=== PATIENT | male | born 1965 | race Caucasian/White ===

== ENCOUNTER 2017-11-26 13:52 | Observation (INO) ==
[2017-11-26] MEDS ORDERED: Aspirin 325 MG TABLET PO STA (14:36)
--- NOTE | 2017-11-26 14:53 | Emergency Department Note ---
Disposition Clinical Impression: Chest pain Qualifiers: Chest pain type: unspecified Qualified Code(s): R07.9 - Chest pain, unspecified CHF (congestive heart failure) Qualifiers: Heart failure type: unspecified Heart failure chronicity: unspecified Qualified Code(s): I50.9 - Heart failure, unspecified Disposition: Admitted As Inpatient Condition: Good Forms: ED Satisfaction Letter General Adult HPI - General Chief complaint: ED Chest Pain Stated complaint: SEE,Chest tightness Time Seen by Provider: 11/26/17 14:29 Source: patient Mode of arrival: ambulatory Limitations: no limitations Nursing Notes Reviewed: Yes Vital Signs Reviewed: Yes - History of Present Illness HPI Narrative: Patient presents today for evaluation of dyspnea and chest pain. Patient has a significantly elevated BMI of 64. Patient has a previous history of CHF. Patient takes 40 mg of Lasix daily. Patient states that he has had increasing shortness of breath with exertion. Patient states symptoms started proximally 5 days ago. Today the patient has chest pain described as pressure in the center of his chest. Patient is currently having active symptoms. Pain does not radiate. Patient states that it is worse with exertion. No associated nausea. No diaphoresis. Patient has not had a productive cough. He has had orthopnea. Pain Scale: 6 - Related Data Home Medications Medication Instructions Recorded Confirmed Aspirin Enteric Coated [Aspirin EC] 81 mg PO DAILY 11/26/17 11/26/17 BuPROPion XL (24 HR) [Wellbutrin 150 mg PO DAILY 11/26/17 11/26/17 XL] Carvedilol 12.5 mg PO BID 11/26/17 11/26/17 DULoxetine [Cymbalta] 30 mg PO DAILY 11/26/17 11/26/17 Ergocalciferol (VITAMIN D2) 50,000 unit PO QWEEK 11/26/17 11/26/17 [Vitamin D2] Furosemide [Lasix] 40 mg PO DAILY 11/26/17 11/26/17 Lisinopril [Zestril] 40 mg PO DAILY 11/26/17 11/26/17 Metformin HCl [Metformin HCl ER] 500 mg PO DAILY 11/26/17 11/26/17 Nitroglycerin [Nitrostat] 0.4 mg SL Q5MIN PRN 11/26/17 11/26/17 Nortriptyline [Pamelor] 25 mg PO HS 11/26/17 11/26/17 Omeprazole [PriLOSEC] 40 mg PO DAILY 11/26/17 11/26/17 Pregabalin [Lyrica] 150 mg PO BID 11/26/17 11/26/17 Sulfasalazine [Azulfidine] 500 mg PO BID 11/26/17 11/26/17 Tamsulosin HCl [Flomax] 0.4 mg PO DAILY 11/26/17 11/26/17 Tizanidine HCl [Tizanidine HCl] 4 mg PO BID 11/26/17 11/26/17 amLODIPine [Norvasc] 5 mg PO DAILY 11/26/17 11/26/17 Allergies Allergy/AdvReac Type Severity Reaction Status Date / Time Penicillins [PCN] Allergy Anaphylaxis Verified 11/26/17 17:15 Review of Systems: CONSTITUTIONAL: Weakness and fatigue No weight loss, fever, chills HEENT: Eyes: No visual changes. Ears, Nose, Throat: No hearing loss, difficulty talking or unable to swallow. SKIN: No rash or itching. CARDIOVASCULAR: Chest pain described as pressure RESPIRATORY: Shortness of breath, orthopnea GASTROINTESTINAL: No anorexia, nausea, vomiting or diarrhea. No abdominal pain or blood. GENITOURINARY: No burning on urination or hematuria. NEUROLOGICAL: Dizziness upon getting up and trying to walk. No headache, syncope, paralysis, ataxia, numbness or tingling in the extremities. No change in bowel or bladder control. MUSCULOSKELETAL: No muscle pain, back pain, joint pain or stiffness. Past Medical History - Past Medical History Medical history: Reports: CHF Psychiatric history: Reports: no psych history - Social History Smoking Status: Unknown if ever smoked Alcohol use: Reports: unknown Drug use: Reports: none Physical Exam General: Well appearing, nontoxic, no acute distress Head: Normocephalic Atraumatic Eyes: PERRL, EOMI ENT: Airway patent, no stridor Neck: supple, no meningismus Chest: Rales at the bases bilaterally Cardiac: Regular rhythm Abdomen: soft, nontender, nondistended; no guarding, rebound, or tenderness to percussion Musculoskeletal: Diffuse swelling in the lower extremities +1 pitting edema up to the thigh Skin: No rash, normal skin tone Neuro: Awake alert and appropriate. Conversational. - General General appearance: alert Course - Reevaluation(s) Reevaluation #1: pain resolved with nitroglycerin. pt will be admitted for chest pain and pulmonary vascular congestion. - Consultations Consultation #1: hospitalist accepts Vital Signs Temperature 97.9 F 11/26/17 14:03 Pulse Rate 103 11/26/17 14:03 Respiratory Rate 20 11/26/17 14:03 Blood Pressure 215/138 11/26/17 14:03 O2 Sat by Pulse Oximetry 90 11/26/17 14:03 Temperature 97.9 F 11/26/17 14:03 Pulse Rate 86 11/26/17 17:18 Respiratory Rate 16 11/26/17 17:18 Blood Pressure 160/93 11/26/17 17:18 O2 Sat by Pulse Oximetry 95 11/26/17 17:18 Oxygen Delivery Oxygen Delivery Nasal Cannula Medical Decision Making - Medical Records Medical records reviewed: Yes I reviewed the patient's medical records. - Lab Data Lab results reviewed: Yes I reviewed the patient's lab results. Result diagrams: 11/26/17 14:45 11/26/17 14:45 Lab Results 11/26/17 11/26/17 11/26/17 Range/Units 14:45 14:45 14:45 WBC 10.6 (4.3-11.1) K/mcL RBC 4.88 (4.19-5.50) M/mcL Hgb 13.8 (12.9-16.9) g/dL Hct 42.7 (37.5-50.1) % MCV 87.5 (83.0-100.0) fL MCH 28.3 (28.0-33.3) pg MCHC 32.3 (31.6-35.5) g/dL RDW 15.1 H (11.5-14.5) % Plt Count 237 (140-400) K/mcL MPV 10.1 (9.4-12.4) fL Immature Gran % 4.4 H (0-4) % Seg Neutrophils % 55.9 % Lymphocytes % 28.1 % Monocytes % 7.9 % Eosinophils % 2.4 % Basophils % 1.3 % Neutrophils # 5.9 (1.6-8.9) K/mcL Lymphocytes # 3.0 (0.6-4.6) K/mcL Monocytes # 0.8 (0.0-1.3) K/mcL Eosinophils # 0.3 (0.0-0.6) K/mcL Basophils # 0.1 (0.0-0.2) K/mcL Sodium 139 (136-145) mEq/L Potassium 3.8 (3.5-5.1) mEq/L Chloride 100 (98-107) mEq/L Carbon Dioxide 33 H (23-29) mEq/L BUN 13 (6-20) mg/dL Creatinine 0.55 L (0.70-1.30) mg/dL Est GFR ( Amer) > 60 (> 60) Est GFR (Non-Af Amer) > 60 (> 60) BUN/Creatinine Ratio 24 (6-26) Glucose 101 (70-105) mg/dL Calculated Osmolality 288 (280-300) Calcium 9.0 (8.6-10.3) mg/dL Troponin I < 0.03 (< 0.04) ng/mL B-Natriuretic Peptide 29 (Less than 100) pg/mL - Radiology Data Radiology results reviewed: Yes I reviewed the patient's radiology results. - EKG Data EKG #1 EKG attestation: Yes I reviewed and interpreted this EKG. EKG results narrative: Shara EKG shows sinus tachycardia with heart rate of 81. W[place] interval 154. QRS 16. QTC 501. Patient has no significant ST elevations. Patient does have depressions within leads 3 and aVF and V6. No old EKG
[2017-11-26 16:07] LABS: Basophils # 0.1 K/mcL (0.0-0.2); Basophils % 1.3 %; Eosinophils # 0.3 K/mcL (0.0-0.6); Eosinophils % 2.4 %; Hematocrit 42.7 % (37.5-50.1); Hemoglobin 13.8 g/dL (12.9-16.9); Immature Granulocytes % 4.4 % (0-4); Lymphocytes % 28.1 %; Mean Corpuscular HGB Conc 32.3 g/dL (31.6-35.5); Mean Corpuscular Hemoglobin 28.3 pg (28.0-33.3); Mean Corpuscular Volume 87.5 fL (83.0-100.0); Mean Platelet Volume 10.1 fL (9.4-12.4); Monocytes # 0.8 K/mcL (0.0-1.3); Monocytes % 7.9 %; Neutrophils # 5.9 K/mcL (1.6-8.9); Platelet Count 237 K/mcL (140-400); Red Blood Count 4.88 M/mcL (4.19-5.50); Red Cell Distribution Width 15.1 % (11.5-14.5); Segmented Neutrophils % 55.9 %
[2017-11-26] MEDS: Nitroglycerin 0.4 MG TAB.SUBL SL STA ×2 (16:22→17:17)
[2017-11-26 16:32] LABS: BUN/Creatinine Ratio 24 (6-26); Blood Urea Nitrogen 13 mg/dL (6-20); Carbon Dioxide 33 mEq/L (23-29); Chloride 100 mEq/L (98-107); Glucose 101 mg/dL (70-105); Osmolality,Calculated 288 (280-300); Potassium 3.8 mEq/L (3.5-5.1); Sodium 139 mEq/L (136-145); Troponin I < 0.03 ng/mL (< 0.04); eGFR For Non-African Americans > 60 (> 60)
[2017-11-26] MEDS ORDERED: Furosemide 40 MG/4 ML VIAL IVP ONE (17:53)
[2017-11-26] MEDS ORDERED: Naloxone 0.4 MG/ML INJ IVP PRN (19:26)
--- NOTE | 2017-11-26 19:36 | Internal Med History&Physical ---
Date of Encounter: 11/26/17 Time of Encounter: 18:50 Internal Medicine - H&P: HPI Chief complaint: Chest Pain, Shortness of Breath Admitted From: Home Plans for Post Hospital Care: Home History of present illness: Mr. Mckay is a 52 year old male with past medical history significant for hypertension, CHF, diabetes, and obesity who presents for shortness of breath over the past 4-5 days getting progressively worse with 10/10 chest tightness starting this morning. Pain was in center of his chest with no radiation. No nausea, vomiting, diaphoresis, cough, or abdominal pain. Denies any alleviation or exacerbating factors. Has had echocardiogram and stress test around four years ago but no heart catheterization history. States he chronically has bilateral lower extremity edema but states it seems to currently be at his baseline. Had nitroglycerin in ER which he states has almost resolved his symptoms completely as his shortness of breath has improved and his chest pain is currently rated at 1/10. Discussed patient with Dr Yi. Past Med Surg Social Fam HX - Past Medical History Medical history: CHF Psychiatric history: no psych history - Social History Smoking Status: Unknown if ever smoked Alcohol use: unknown Drug use: none Internal Medicine - H&P: Meds Aspirin Enteric Coated [Aspirin EC] 81 mg PO DAILY 11/26/17 [History] BuPROPion XL (24 HR) [Wellbutrin XL] 150 mg PO DAILY 11/26/17 [History] Carvedilol 12.5 mg PO BID 11/26/17 [History] DULoxetine [Cymbalta] 30 mg PO DAILY 11/26/17 [History] Ergocalciferol (VITAMIN D2) [Vitamin D2] 50,000 unit PO QWEEK 11/26/17 [History] Furosemide [Lasix] 40 mg PO DAILY 11/26/17 [History] Lisinopril [Zestril] 40 mg PO DAILY 11/26/17 [History] Metformin HCl [Metformin HCl ER] 500 mg PO DAILY 11/26/17 [History] Nitroglycerin [Nitrostat] 0.4 mg SL Q5MIN PRN 11/26/17 [History] Nortriptyline [Pamelor] 25 mg PO HS 11/26/17 [History] Omeprazole [PriLOSEC] 40 mg PO DAILY 11/26/17 [History] Pregabalin [Lyrica] 150 mg PO BID 11/26/17 [History] Sulfasalazine [Azulfidine] 500 mg PO BID 11/26/17 [History] Tamsulosin HCl [Flomax] 0.4 mg PO DAILY 11/26/17 [History] Tizanidine HCl [Tizanidine HCl] 4 mg PO BID 11/26/17 [History] amLODIPine [Norvasc] 5 mg PO DAILY 11/26/17 [History] 3 Allergy/AdvReac Type Severity Reaction Status Date / Time Penicillins [PCN] Allergy Anaphylaxis Verified 11/26/17 17:15 All Systems PM: A 10-system review of systems was performed and is negative for pertinent findings except as documented above in the HPI. - Constitutional Vitals: Temp Pulse Resp BP Pulse Ox 97.9 F 78 16 188/102 95 11/26/17 14:03 11/26/17 18:43 11/26/17 18:43 11/26/17 18:43 11/26/17 18:43 Exam: General: Alert and oriented. Skin:Normal color, no rash, no lesions. HEENT:Pupils equal, round and reactive. Cardiovascular:Heart sounds distant. No rubs, murmurs or gallops. No JVD. Pulse regular. Lungs:Breath sounds decreased, no wheezes or crackles. Respirations non labored. Abdomen:Round, soft, non-tender, no rigidity. Extremities:No deformity, tenderness, or clubbing. 2+ pitting edema noted to bilateral lower extremities. Neurological:Normal cognition and motor skills. Pulses:Carotid and radial pulses normal +2. Rest of the physical exam is non contributory. Internal Med - H&P Results - Labs CBC & Chem 7: 11/26/17 14:45 11/26/17 14:45 - Assessment and plan (1) Chest pain Current Visit: Yes Status: Acute Assessment and plan: Continuous cardiac rehabilitation specialist. Initial troponin in ER negative, serial troponins ordered. Echocardiogram ordered. Stress test in a.m. Cardiac diet. NPO after midnight. Qualifiers: Chest pain type: unspecified Qualified Code(s): R07.9 - Chest pain, unspecified (2) CHF (congestive heart failure) Current Visit: Yes Status: Chronic Assessment and plan: 20mg Lasix IV BID. Hold oral lasix. Echocardiogram ordered. BNP in a.m. Qualifiers: Heart failure type: unspecified Heart failure chronicity: unspecified Qualified Code(s): I50.9 - Heart failure, unspecified (3) Hypertension Current Visit: Yes Status: Chronic Assessment and plan: Continue home medications. Qualifiers: Hypertension type: unspecified Qualified Code(s): I10 - Essential (primary ) hypertension (4) Diabetes mellitus Current Visit: Yes Status: Chronic Assessment and plan: Accucheck ACHS. Hold home medications. Start low dose sliding scale insulin. Qualifiers: Diabetes mellitus type: type 2 Diabetes mellitus supervisor long goods insulin use: without supervisor long goods use Diabetes mellitus complication status: without complication Qualified Code(s): E11.9 - Type 2 diabetes mellitus without complications - Time Spent With Patient Total time spent is greater than 50% in coordination of care (as documented) at patient's floor/unit and/or counseling patient:
[2017-11-26] MEDS ORDERED: *HR* Dextrose 50 % in Water (Syg) 50 ML SYRINGE IVP PRN (19:47)
[2017-11-26] MEDS ORDERED: Dextrose Gel 15 GM/37.5 ML TUBE PO PRN ×2 (19:47)
[2017-11-26] MEDS ORDERED: Furosemide 40 MG/4 ML VIAL IVP SCH (21:00)
[2017-11-26] MEDS ORDERED: D5% in Water 1,000 ML IVC PRN (22:52)
[2017-11-26] MEDS: Insulin LISPRO 300 UNITS/3 ML VIAL SQ SCH (23:11)
[2017-11-26] MEDS: Pregabalin 75 MG CAPSULE PO SCH (23:13)
[2017-11-26] MEDS: Furosemide 20 MG/2 ML VIAL IVP SCH (23:13)
[2017-11-26] MEDS: tiZANidine 4 MG TABLET PO SCH (23:14)
[2017-11-26] MEDS: sulfaSALAzine 500 MG TABLET PO SCH (23:14)
[2017-11-27 02:20] LABS: Basophils # 0.1 K/mcL (0.0-0.2); Eosinophils # 0.3 K/mcL (0.0-0.6); Eosinophils % 2.8 %; Hemoglobin 13.6 g/dL (12.9-16.9); Immature Granulocytes % 3.6 % (0-4); Lymphocytes # 2.8 K/mcL (0.6-4.6); Lymphocytes % 26.1 %; Mean Corpuscular HGB Conc 31.6 g/dL (31.6-35.5); Mean Corpuscular Hemoglobin 27.9 pg (28.0-33.3); Mean Corpuscular Volume 88.3 fL (83.0-100.0); Mean Platelet Volume 9.6 fL (9.4-12.4); Monocytes # 0.9 K/mcL (0.0-1.3); Monocytes % 8.8 %; Neutrophils # 6.2 K/mcL (1.6-8.9); Platelet Count 211 K/mcL (140-400); Red Blood Count 4.87 M/mcL (4.19-5.50); Red Cell Distribution Width 15.2 % (11.5-14.5); Segmented Neutrophils % 57.7 %
[2017-11-27 02:34] LABS: BUN/Creatinine Ratio 19 (6-26); Blood Urea Nitrogen 14 mg/dL (6-20); Calcium 8.8 mg/dL (8.6-10.3); Carbon Dioxide 34 mEq/L (23-29); Chloride 99 mEq/L (98-107); Glucose 133 mg/dL (70-105); Osmolality,Calculated 290 (280-300); Potassium 3.6 mEq/L (3.5-5.1); Sodium 139 mEq/L (136-145); eGFR For Non-African Americans > 60 (> 60)
[2017-11-27] MEDS ORDERED: Regadenoson 0.4 MG/5 ML SYRINGE IVP ONE (05:51)
[2017-11-27] MEDS: Insulin LISPRO 300 UNITS/3 ML VIAL SQ SCH ×4 (08:30→20:50)
[2017-11-27] MEDS ORDERED: Furosemide 20 MG/2 ML VIAL IVP SCH (09:00)
--- NOTE | 2017-11-27 10:39 | Internal Med Progress Note ---
Hospitalist Progress Note - Encounter Date of Encounter: 11/27/17 Time of Encounter: 10:30 - Subjective Interval History: Had one part of stress test completed this am - Exam Vitals: Temp Pulse Resp BP Pulse Ox 97.9 F 76 17 133/69 97 11/27/17 02:54 11/27/17 02:54 11/27/17 02:54 11/27/17 02:54 11/27/17 02:54 Exam: General: Alert and oriented. Morbidly obese Skin:Normal color, no rash, no lesions. HEENT:Pupils equal, round and reactive. Cardiovascular:Heart sounds distant. No rubs, murmurs or gallops. No JVD. Pulse regular. Lungs:Breath sounds decreased, no wheezes or crackles. Respirations non labored. Abdomen:Round, soft, non-tender, no rigidity. Extremities:No deformity, tenderness, or clubbing. 2+ pitting edema noted to bilateral lower extremities. Neurological:Normal cognition and motor skills. Pulses:Carotid and radial pulses normal +2. Rest of the physical exam is non contributory. - Assessment and Plan (1) Chest pain Current Visit: Yes Status: Acute Assessment and Plan: Pt has chest pain with risk factors for CAd including hypertension, diabetes. Continuous outgoing inspector. Initial troponin in ER negative, serial troponins ordered. Echocardiogram ordered. 11/27 Completed first part of stress today. To complete 2nd part of stress test in am. NPO from midnight (2) CHF (congestive heart failure) Current Visit: Yes Status: Chronic Assessment and Plan: 20mg Lasix IV BID. Echo results pending. No previous echo to determine if CHF is diastolic or systolic or both (3) Hypertension Current Visit: Yes Status: Chronic Assessment and Plan: Continue home medications. (4) Diabetes mellitus Current Visit: Yes Status: Chronic Assessment and Plan: Accucheck ACHS. Hold home medications. Start low dose sliding scale insulin. (5) Morbid obesity Current Visit: Yes Status: Acute Assessment and Plan: BMI 65. Diet and exercise (6) DVT prophylaxis Current Visit: Yes Status: Acute Assessment and Plan: heparin sc - Time Spent with Patient Total time spent is greater than 50% in coordination of care (as documented) at patient's floor/unit and/or counseling patient: Internal Medicine: Result - Labs CBC & Chem 7: 11/27/17 01:56 11/27/17 01:56 Labs: Short CBC 11/27/17 Range/Units 01:56 WBC 10.7 (4.3-11.1) K/mcL Hgb 13.6 (12.9-16.9) g/dL Hct 43.0 (37.5-50.1) % Plt Count 211 (140-400) K/mcL Neutrophils # 6.2 (1.6-8.9) K/mcL BMP 11/27/17 01:56 Sodium 139 Potassium 3.6 Chloride 99 Carbon Dioxide 34 H BUN 14 Creatinine 0.74 Glucose 133 H Calcium 8.8 Cardiac Enzymes 11/26/17 11/27/17 Range/Units 20:19 01:56 Troponin I < 0.03 < 0.03 (< 0.04) ng/mL Consult Discharge Plan - Plan Referrals: Regina Forte MD [Primary Care Provider] - (1) Chest pain Qualifiers: Chest pain type: unspecified Qualified Code(s): R07.9 - Chest pain, unspecified (2) CHF (congestive heart failure) Qualifiers: Heart failure type: unspecified Heart failure chronicity: unspecified Qualified Code(s): I50.9 - Heart failure, unspecified (3) Hypertension Qualifiers: Hypertension type: unspecified Qualified Code(s): I10 - Essential (primary) hypertension (4) Diabetes mellitus Qualifiers: Diabetes mellitus type: type 2 Diabetes mellitus salvage determiner insulin use: without snf use Diabetes mellitus complication status: without complication Qualified Code(s): E11.9 - Type 2 diabetes mellitus without complications
[2017-11-27] MEDS: tiZANidine 4 MG TABLET PO SCH ×2 (10:45→20:51)
[2017-11-27] MEDS: Lisinopril 20 MG TABLET PO SCH (10:46)
[2017-11-27] MEDS: Pregabalin 75 MG CAPSULE PO SCH ×2 (10:46→20:51)
[2017-11-27] MEDS: amLODIPine 5 MG TABLET PO SCH (10:46)
[2017-11-27] MEDS: BuPROPion XL (24 HR) 150 MG TABLET PO SCH (10:46)
[2017-11-27] MEDS: Aspirin Enteric Coated 81 MG Tablet PO SCH (10:46)
[2017-11-27] MEDS: sulfaSALAzine 500 MG TABLET PO SCH ×2 (10:46→20:51)
[2017-11-27] MEDS: Furosemide 20 MG/2 ML VIAL IVP SCH ×2 (10:47→20:51)
[2017-11-27] MEDS: *HR* Heparin 5,000 UNIT/ML VIAL SQ SCH (17:12)
--- NOTE | 2017-11-27 17:48 | Electrocardiograph Report ---
[address] [address] Test Date: 2017-11-26 Pat Name: Silas Mckay Department: [id number] Room: 3B13 Gender: M Quality Coordinator: : 1965 Requested By: [id number] Order Number: [id number] Reading MD: Geoff Trotter Measurements Intervals [place] Rate: 81 P: 63 VT: 154 QRS: 132 QRSD: 106 T: 12 QT: 431 QTc: 501 Interpretive Statements Sinus rhythm Low voltage, precordial leads Prolonged QT interval Electronically Signed On 11-27-2017 17:46:50 EDT by Geoff Trotter
[2017-11-28] MEDS: *HR* Heparin 5,000 UNIT/ML VIAL SQ SCH ×2 (04:53→18:12)
[2017-11-28] MEDS: Insulin LISPRO 300 UNITS/3 ML VIAL SQ SCH ×4 (07:40→21:04)
[2017-11-28] MEDS: sulfaSALAzine 500 MG TABLET PO SCH ×2 (07:50→21:03)
[2017-11-28] MEDS: Aspirin Enteric Coated 81 MG Tablet PO SCH (07:50)
[2017-11-28] MEDS: amLODIPine 5 MG TABLET PO SCH (07:50)
[2017-11-28] MEDS: Pregabalin 75 MG CAPSULE PO SCH ×2 (07:50→21:03)
[2017-11-28] MEDS: Lisinopril 20 MG TABLET PO SCH (07:50)
[2017-11-28] MEDS: BuPROPion XL (24 HR) 150 MG TABLET PO SCH (07:51)
[2017-11-28] MEDS: tiZANidine 4 MG TABLET PO SCH ×2 (07:51→21:03)
[2017-11-28] MEDS: Furosemide 20 MG/2 ML VIAL IVP SCH ×2 (07:51→21:03)
--- NOTE | 2017-11-28 16:03 | Internal Med Progress Note ---
Hospitalist Progress Note - Encounter Date of Encounter: 11/28/17 Time of Encounter: 16:00 - Subjective Interval History: Morbidly obese morbidly obese very pleasant 52-year-old male who was admitted for chest pain. EEG. Has history of diabetes type 2 and he keeps a record of his home blood sugars and now fastings appear to be greater than 200 routinely with improvement test throughout the day he currently takes metformin 2 g daily as well as glyburide 4 mg twice daily and does state that he she routinely eats nightly snack. - Exam Vitals: Temp Pulse Resp BP Pulse Ox 98.0 F 110 15 122/79 96 11/28/17 15:49 11/28/17 15:49 11/28/17 15:49 11/28/17 15:49 11/28/17 15:49 Exam: Stable , denies chist pain, in oxygen @2LPM, non-dyspnic - Assessment and Plan (1) Chest pain Current Visit: Yes Status: Acute Assessment and Plan: Denies chest pain at this time . Completed 2nd part of stress test today with results pending at this time. 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% Troponins are negative 2 at 0.03 Will continue current medications awaiting results of stress test, if needed will consult cardiology (2) CHF (congestive heart failure) Current Visit: Yes Status: Chronic Assessment and Plan: Remains in oxygen @ 2LPM , SPO2 94% will continue with oxygen and monitor with daily weights and strick I&O (3) Hypertension Current Visit: Yes Status: Chronic Assessment and Plan: Stable, will continue with current medications (4) Diabetes mellitus Current Visit: Yes Status: Chronic Assessment and Plan: Review of home glucose per patients report, Moderate controll of glucose, with fasting >200 mg. and Randoms in eving improving to 130's average. Reports eating a late night snack every evening. Morbidly obese with BMI 198.1 kg. Discussed late night eating, and to have a healthy snack such as 2 cups of plain pop corn. Encouraged to consider weight loss. Encouraged to continue to monitor home blood sugars Will obtain HGB A!C and CMP Consult diabetic education, and spooling machine operator re; diabetes and morbid obesity Add levemir 10 units qhs continue with ss TID/hs wm (5) DVT prophylaxis Current Visit: Yes Status: Acute Assessment and Plan: Continue per protocol (6) Morbid obesity Current Visit: Yes Status: Acute - Time Spent with Patient Total time spent is greater than 50% in coordination of care (as documented) at patient's floor/unit and/or counseling patient: less than 15 minutes Plan of Care Discussed with: family Internal Medicine: Result - Labs CBC & Chem 7: 11/27/17 01:56 11/27/17 01:56 Consult Discharge Plan - Plan Referrals: Regina Forte MD [Primary Care Provider] - (1) Chest pain Qualifiers: Chest pain type: unspecified Qualified Code(s): R07.9 - Chest pain, unspecified (2) CHF (congestive heart failure) Qualifiers: Heart failure type: unspecified Heart failure chronicity: unspecified Qualified Code(s): I50.9 - Heart failure, unspecified (3) Hypertension Qualifiers: Hypertension type: essential hypertension Qualified Code(s): I10 - Essential (primary) hypertension (4) Diabetes mellitus Qualifiers: Diabetes mellitus type: type 2 Diabetes mellitus terminal computer operator insulin use: without mcfp use Diabetes mellitus complication status: with hyperglycemia Qualified Code(s): E11.65 - Type 2 diabetes mellitus with hyperglycemia
[2017-11-28 17:09] LABS: Alanine Aminotransferase 46 Units/L (7-52); Albumin 3.9 g/dL (3.5-5.7); Albumin/Globulin Ratio 1.1 (1.1-2.2); Alkaline Phosphatase 136 Units/L (34-104); Aspartate Amino Transferase 28 Units/L (13-39); BUN/Creatinine Ratio 16 (6-26); Bilirubin,Total 0.5 mg/dL (0.3-1.0); Blood Urea Nitrogen 12 mg/dL (6-20); Calcium 9.1 mg/dL (8.6-10.3); Carbon Dioxide 37 mEq/L (23-29); Chloride 97 mEq/L (98-107); Globulin 3.5 g/dL (2.4-3.5); Glucose 133 mg/dL (70-105); Osmolality,Calculated 288 (280-300); Sodium 138 mEq/L (136-145); Total Protein 7.4 g/dL (6.4-8.9); eGFR For Non-African Americans > 60 (> 60)
[2017-11-28 17:26] LABS: Estimated Average Glucose 154 mg/dl
--- NOTE | 2017-11-28 17:38 | Event Note ---
Date of Encounter: 11/28/17 Time of Encounter: 17:33 stress Test results reviewed and positive for Impression: Reversible perfusion defect of mild to moderate intensity at mid to basal inferior wall suggests ischemia of small to moderate size (SDS=3). No evidence of infarct on perfusion study. Stress LVEF 53%. No ischemic stress ECG findings. No abnormal hemodynamic changes during stress test. Will Consult Dr. Watkins Bottom Worker
[2017-11-28] MEDS ORDERED: Insulin DETEMIR 100 UNIT/ML X5UNITS SQ SCH (21:00)
[2017-11-29] MEDS: *HR* Heparin 5,000 UNIT/ML VIAL SQ SCH ×2 (05:26→16:41)
[2017-11-29] MEDS: Insulin LISPRO 300 UNITS/3 ML VIAL SQ SCH ×3 (08:13→16:41)
[2017-11-29] MEDS: amLODIPine 5 MG TABLET PO SCH (08:21)
[2017-11-29] MEDS: Aspirin Enteric Coated 81 MG Tablet PO SCH (08:21)
[2017-11-29] MEDS: sulfaSALAzine 500 MG TABLET PO SCH (08:21)
[2017-11-29] MEDS: Pregabalin 75 MG CAPSULE PO SCH (08:21)
[2017-11-29] MEDS: BuPROPion XL (24 HR) 150 MG TABLET PO SCH (08:21)
[2017-11-29] MEDS: Furosemide 20 MG/2 ML VIAL IVP SCH (08:22)
[2017-11-29] MEDS: tiZANidine 4 MG TABLET PO SCH (08:22)
[2017-11-29] MEDS: Lisinopril 20 MG TABLET PO SCH (08:22)
[2017-11-29 09:02] LABS: INR 1.1; Prothrombin Time 11.9 Seconds (9.4-12.1)
--- NOTE | 2017-11-29 09:10 | Internal Med Progress Note ---
Hospitalist Progress Note - Encounter Date of Encounter: 11/29/17 Time of Encounter: 09:07 - Subjective Interval History: Acute changes overnight. Patient is out of bed resting comfortably without any complaints. Denies any chest pain at this time. Continue respiratory distress. We are awaiting consultation from cardiology for further recommendations. I anticipate a [facility] this afternoon for further evaluation for CAD. This was discussed with the patient who verbalizes understanding denies any further questions at this time. - Exam Vitals: Temp Pulse Resp BP Pulse Ox 98.5 F 81 5 176/95 95 11/29/17 07:23 11/29/17 07:23 11/29/17 07:23 11/29/17 07:23 11/29/17 07:23 Exam: PHYSICAL EXAMINATION: GENERAL: The patient is an ill-appearing obese male in no apparent distress. He is alert and oriented x3. HEENT: Head is normocephalic and atraumatic. Extraocular muscles are intact. Pupils are equal, round, and reactive to light and accommodation. NECK: Supple. No carotid bruits. No lymphadenopathy or thyromegaly. LUNGS: Clear/diminished to auscultation throughout bilaterally AP and L. Poor respiratory effort due to hypoventilation syndrome with obesity HEART: Regular rate and rhythm without murmur. ABDOMEN: Soft, nontender, and nondistended. Positive bowel sounds. No hepatosplenomegaly was noted. EXTREMITIES: Without any cyanosis, clubbing, rash, lesions, generalized nonpitting edema evident on bilateral lower extremity NEUROLOGIC: No facial droop or slurred speech noted SKIN: No ulceration or induration present, skin is warm and dry and intact. - Assessment and Plan (1) Chest pain Current Visit: Yes Status: Acute (2) CHF (congestive heart failure) Current Visit: Yes Status: Chronic (3) Hypertension Current Visit: Yes Status: Chronic (4) Diabetes mellitus Current Visit: Yes Status: Chronic (5) DVT prophylaxis Current Visit: Yes Status: Acute (6) Morbid obesity Current Visit: Yes Status: Acute - Time Spent with Patient Total time spent is greater than 50% in coordination of care (as documented) at patient's floor/unit and/or counseling patient: Internal Medicine: Result - Labs CBC & Chem 7: 11/27/17 01:56 11/28/17 16:35 Labs: BMP 11/28/17 16:35 Sodium 138 Potassium 4.0 Chloride 97 L Carbon Dioxide 37 H BUN 12 Creatinine 0.74 Glucose 133 H Calcium 9.1 Liver Function 11/28/17 Range/Units 16:35 Total Bilirubin 0.5 (0.3-1.0) mg/dL AST 28 (13-39) Units/L ALT 46 (7-52) Units/L Alkaline Phosphatase 136 H (34-104) Units/L Albumin 3.9 (3.5-5.7) g/dL - ABG Interpretation ABG results: PT/INR, D-dimer PT 11.9 Seconds (9.4-12.1) 11/29/17 08:36 Consult Discharge Plan - Plan Referrals: Regina Forte MD [Primary Care Provider] - (1) Chest pain Qualifiers: Chest pain type: unspecified Qualified Code(s): R07.9 - Chest pain, unspecified (2) CHF (congestive heart failure) Qualifiers: Heart failure type: unspecified Heart failure chronicity: unspecified Qualified Code(s): I50.9 - Heart failure, unspecified (3) Hypertension Qualifiers: Hypertension type: essential hypertension Qualified Code(s): I10 - Essential (primary) hypertension (4) Diabetes mellitus Qualifiers: Diabetes mellitus type: type 2 Diabetes mellitus roasterman insulin use: without roasterman use Diabetes mellitus complication status: with hyperglycemia Qualified Code(s): E11.65 - Type 2 diabetes mellitus with hyperglycemia
--- NOTE | 2017-11-29 09:36 | Cardiology Consult Note ---
<Gil Hart - Last Filed: 11/29/17 10:29> Date of Encounter: 11/29/17 Time of Encounter: 09:35 Assessment and Plan (1) Chest pain Current Visit: Yes Status: Acute Per Cardiology: Troponins negative 3. Currently chest pain-free. Echo: Impressions: Technically sub-optimal due to body habitus. LVEF 55-60%. Normal LV chamber size, wall thickness and function. Atypical septal motion consistent with bundle branch block. Moderate left ventricular diastolic dysfunction. Moderately dilated right ventricle with normal appearing function. Severely dilated left atrium. Unable to estimate RVSP due to lack of TR jet. No obvious significant valvular dysfunction. Left Ventricular Wall Motion: Rest Echo Findings All wall segments showed normal motion. Qualifiers: Chest pain type: unspecified Qualified Code(s): R07.9 - Chest pain, unspecified (2) Abnormal nuclear stress test Current Visit: Yes Status: Acute Per Cardiology: Non-exercise nuclear stress test showed "reversible perfusion defect of mild to moderate intensity at mid to basal inferior wall suggestive of ischemia of small to moderate size (SDS 3)". On aspirin, beta malka, JITENDRA inhibitor, will add statin. I had lengthy discussion with patient and regarding further ischemic evaluation-- at this point agreeable to proceed with catheterization. Discussed and reviewed with Dr. Contreras and Dr. Mittal. Further recommendations after catheterization. Primary service notified. Discussion w patient/family: The assessment and plan as outlined above was discussed with the patient and/or family members who expressed understanding and agreement. All questions were answered. Thank you for involving us in the care of your patient. Please call with any questions. History of Present Illness Consult date: 11/29/17 Consult reason: CP, SOB, + ST Chief complaint: CP, SOB History of present illness: Mr. Mckay is a 52 year old male with past medical history significant for hypertension, CHF, diabetes, and obesity who presented for shortness of breath over the past 4-5 days getting progressively worse with 10/10 chest tightness starting this morning. Presented with chest pain and shortness of breath. Cardiology consult for abnormal stress test results. Patient denies any past history of CAD. Reports he smoked a pack and a half per day for 30 years and quit smoking 2 years ago. Reports family history mother of CHF. He reports chest tightness at rest intermittently with past for 5 days. He reports short of breath at rest worsening over the past 4-5 days. Prior to these episodes he denies any chest pain with exertion. He does report limited mobility due to weight. Denies any increased fatigue. Past Med Surg Social Fam HX - Past Medical History Attestation: Yes The following information was validated with the patient. Source: patient, old records reviewed, obtained from family Medical history: arthritis, CHF, COPD Psychiatric history: depression - Past Surgical History Surgical History: tonsilectomy - Social History Smoking Status: Unknown if ever smoked Alcohol use: unknown Drug use: none - Family History Father Living Status: Unknown Mother Living Status: Hx Family Cardiac Disorders: Yes (CHF) Brother Hx Family Endocrine Disorder: Yes (seizures) Medications and Allergies Aspirin Enteric Coated [Aspirin EC] 81 mg PO DAILY 11/26/17 [History] BuPROPion XL (24 HR) [Wellbutrin Xl] 150 mg PO DAILY 11/26/17 [History] Carvedilol 12.5 mg PO BID 11/26/17 [History] DULoxetine [Cymbalta] 30 mg PO DAILY 11/26/17 [History] Ergocalciferol (VITAMIN D2) [Vitamin D2] 50,000 unit PO QWEEK 11/26/17 [History] Furosemide [Lasix] 40 mg PO DAILY 11/26/17 [History] Lisinopril [Zestril] 40 mg PO DAILY 11/26/17 [History] Metformin HCl [Metformin HCl ER] 500 mg PO DAILY 11/26/17 [History] Nitroglycerin [Nitrostat] 0.4 mg SL Q5MIN PRN 11/26/17 [History] Nortriptyline [Pamelor] 25 mg PO HS 11/26/17 [History] Omeprazole [PriLOSEC] 40 mg PO DAILY 11/26/17 [History] Pregabalin [Lyrica] 150 mg PO BID 11/26/17 [History] Sulfasalazine [Azulfidine] 500 mg PO BID 11/26/17 [History] Tamsulosin HCl [Flomax] 0.4 mg PO DAILY 11/26/17 [History] Tizanidine HCl 4 mg PO BID 11/26/17 [History] amLODIPine [Norvasc] 5 mg PO DAILY 11/26/17 [History] 3 Allergy/AdvReac Type Severity Reaction Status Date / Time Penicillins [PCN] Allergy Anaphylaxis Verified 11/26/17 17:15 All Systems Review: The remainder of the systems were reviewed and are negative - Cardiovascular Cardiovascular: as per HPI, chest pain at rest, dyspnea at rest Physical Examination Vital Signs, Last 4 Hours Temp Pulse Resp BP Pulse Ox 11/29/17 07:23 98.5 F 81 5 176/95 95 General: Conversant, No Apparent Distress HEENT: Atraumatic, Normocephaly, Mucus Membranes Moist Neck: No JVD, Normal carotid pulses Cardiac: Reg Rate and Rhythm, Normal S1 and S2, No Murmur Lungs: Normal Breath Sounds, No Wheeze, Rales, Rhonchi Neuro: Alert and responsive, No focal deficits noted Abdomen: Soft, Non-Tender, Other (Morbidly obese) Skin: No rashes noted on visualized skin Musculoskeletal: No Chest Wall Tenderness Extremities: No Clubbing, No Cyanosis, Normal Pulses, Other (+1 nonpitting, dusky colored) Results 11/27/17 01:56 11/28/17 16:35 Lab Results Laboratory Tests 11/26/17 11/26/17 11/27/17 14:45 20:19 01:56 Hgb Hct Plt Count INR Creatinine Est GFR (Non-Af Amer) Calcium AST ALT Troponin I < 0.03 < 0.03 < 0.03 B-Natriuretic Peptide 11/27/17 11/27/17 11/28/17 01:56 01:56 16:35 Hgb 13.6 Hct 43.0 Plt Count 211 INR Creatinine 0.74 Est GFR (Non-Af Amer) > 60 Calcium 9.1 AST 28 ALT 46 Troponin I B-Natriuretic Peptide 25 11/29/17 08:36 Hgb Hct Plt Count INR 1.1 Creatinine Est GFR (Non-Af Amer) Calcium AST ALT Troponin I B-Natriuretic Peptide ITS Impressions Chest X-Ray 11/26/17 14:32 IMPRESSION: Pulmonary vascular congestion and possible edema. D/ / Greg Goldman MD / Greg Goldman MD Interpreting Provider: Greg Goldman MD Echocardiogram 11/27/17 19:29 Impressions: Technically sub-optimal due to body habitus. LVEF 55-60%. Normal LV chamber size, wall thickness and function. Atypical septal motion consistent with bundle branch block. Moderate left ventricular diastolic dysfunction. Moderately dilated right ventricle with normal appearing function. Severely dilated left atrium. Unable to estimate RVSP due to lack of TR jet. No obvious significant valvular dysfunction. Left Ventricular Wall Motion: Rest Echo Findings All wall segments showed normal motion. Findings: Study Quality * Technically sub-optimal due to body habitus. ECG Findings * Sinus rhythm with BBB. Left Ventricle * LVEF 55-60%. * Normal LV chamber size, wall thickness and function. * Atypical septal motion consistent with bundle branch block. * Moderate left ventricular diastolic dysfunction. Right Ventricle * Moderately dilated right ventricle with normal appearing function. Left Atrium * Severely dilated left atrium. Right Atrium * Mildly dilated right atrium. Aortic Valve * Aortic valve not well visualized. * No aortic regurgitation. * No aortic stenosis. Mitral Valve * Normal mitral valve structure and function. * No mitral stenosis. * No mitral regurgitation. Tricuspid Valve * Normal tricuspid valve structure and function. * No tricuspid regurgitation. * Unable to estimate RVSP due to lack of TR jet. Pulmonic Valve * Pulmonic valve not well visualized. Aorta * Normally sized aortic root. Pericardium * The pericardium appears normal. IVC * The IVC is not well evaluated. Pulmonary Artery * Pulmonary artery not well visualized. Active Medications Amlodipine Besylate (Norvasc) 5 mg PO DAILY [facility] PRN Reason: Protocol Stop: 05/29/18 09:01 Last Admin: 11/29/17 08:21 Dose: 5 mg Aspirin (Aspirin Ec) 81 mg PO DAILY [facility] Stop: 05/29/18 09:01 Last Admin: 11/29/17 08:21 Dose: 81 mg Bupropion HCl (Wellbutrin Xl) 150 mg PO DAILY [facility] Stop: 05/29/18 09:01 Last Admin: 11/29/17 08:21 Dose: 150 mg Carvedilol (Coreg) 12.5 mg PO BID [facility] Stop: 05/28/18 23:01 Last Admin: 11/29/17 08:21 Dose: 12.5 mg Dextrose/Water (Dextrose 50% (Syg)) 25 ml IVP AD PRN PRN Reason: Hypoglycemia Stop: 05/28/18 19:48 Duloxetine HCl (Cymbalta) 30 mg PO DAILY [facility] Stop: 05/29/18 09:01 Last Admin: 11/29/17 08:21 Dose: 30 mg Ergocalciferol (Drisdol (50,000 Unit)) 50,000 unit PO Le [facility] Stop: 06/02/18 09:01 Furosemide (Lasix) 20 mg IVP BID [facility] Stop: 05/28/18 23:01 Last Admin: 11/29/17 08:22 Dose: 20 mg Glucagon (Glucagen) 1 mg IM ONCE PRN PRN Reason: Hypoglycemia Stop: 05/28/18 19:48 Glucose (Gluctose) 15 gm PO ONCE PRN PRN Reason: Hypoglycemia Stop: 05/28/18 19:48 Glucose (Gluctose) 30 gm PO ONCE PRN PRN Reason: Hypoglycemia Stop: 05/28/18 19:48 Heparin Sodium (Porcine) (Heparin) 5,000 unit SQ Q12HCO [facility] Stop: 05/29/18 18:01 Last Admin: 11/29/17 05:26 Dose: Not Given Dextrose (Dextrose 5%) 1,000 mls @ 100 mls/hr IVC .Q10H PRN PRN Reason: HYPOGLYCEMIA Stop: 05/28/18 22:53 Insulin Detemir (Levemir) 10 unit SQ HS [facility] Stop: 05/30/18 21:01 Last Admin: 11/28/17 21:03 Dose: 10 unit Insulin Human Lispro (Humalog) 0 units SQ HS [facility] PRN Reason: Protocol Stop: 05/28/18 23:01 Last Admin: 11/28/17 21:04 Dose: Not Given Insulin Human Lispro (Humalog) 0 units SQ TIDAC [facility] PRN Reason: Protocol Stop: 05/29/18 07:31 Last Admin: 11/29/17 08:13 Dose: Not Given Lisinopril (Zestril) 40 mg PO DAILY [facility] Stop: 05/29/18 09:01 Last Admin: 11/29/17 08:22 Dose: 40 mg Naloxone HCl (Narcan) 0.4 mg IVP Q2MIN PRN PRN Reason: SEE COMMENTS Stop: 05/28/18 19:27 Nortriptyline HCl (Pamelor) 25 mg PO HS [facility] Stop: 05/28/18 23:01 Last Admin: 11/28/17 21:03 Dose: 25 mg Omeprazole (Prilosec) 40 mg PO DAILY [facility] Stop: 05/29/18 09:01 Last Admin: 11/29/17 08:21 Dose: 40 mg Pregabalin (Lyrica) 150 mg PO BID [facility] Stop: 05/28/18 23:01 Last Admin: 11/29/17 08:21 Dose: 150 mg Sulfasalazine (Sulfasalazine) 500 mg PO BID [facility] Stop: 05/28/18 23:01 Last Admin: 11/29/17 08:21 Dose: 500 mg Tamsulosin HCl (Flomax) 0.4 mg PO DAILY [facility] PRN Reason: Protocol Stop: 05/29/18 09:01 Last Admin: 11/29/17 08:21 Dose: 0.4 mg Tizanidine HCl (Zanaflex) 4 mg PO BID [facility] Stop: 05/28/18 23:01 Last Admin: 11/29/17 08:22 Dose: 4 mg - Imaging and Cardiology Stress Test: report reviewed Echo: report reviewed - EKG Interpretation EKG results cardiology: personally reviewed, normal ECG, sinus rhythm, no diagnostic ischemia Consult Discharge Plan - Plan Instructions: Heart Failure (DC), Chest Pain (DC), Diabetes Mellitus Type 2 in Adults (DC), Chronic Hypertension (DC) Additional Instructions: Call [facility] when you get home to have oxygen equipment delivered. [phone] Referrals: Regina Forte MD [Primary Care Provider] - 12/06/17 11:00 am < A - Last Filed: 11/29/17 17:38> Date of Encounter: 11/29/17 - Attending Attestation I have personally performed a face to face evaluation on this patient. I have reviewed and agree with the care plan. History and Exam by me shows: 52 y/o M with risk factors for CAD, atypical chest pain and abnormal stress test. For cardiac cath today. Assessment and Plan Discussion w patient/family: The assessment and plan as outlined above was discussed with the patient and/or family members who expressed understanding and agreement. All questions were answered. Thank you for involving us in the care of your patient. Please call with any questions. History of Present Illness History of present illness: Mr. Mckay is a 52 year old male All Systems Review: The remainder of the systems were reviewed and are negative Physical Examination Vital Signs, Last 4 Hours Temp Pulse Resp BP Pulse Ox 11/29/17 17:00 96 16 137/72 97 11/29/17 16:30 80 16 167/89 93 11/29/17 16:00 78 16 158/76 92 11/29/17 15:45 75 16 153/55 93 11/29/17 15:38 93 11/29/17 15:30 80 16 132/88 92 11/29/17 15:15 83 14 165/80 92 11/29/17 15:00 98.6 F 76 14 173/97 93 Results 11/27/17 01:56 11/28/17 16:35 Lab Results 11/29/17 08:36 INR 1.1
[2017-11-29] MEDS ORDERED: 0.9 % Sodium Chloride 1,000 ML ONE ×2 (13:06→13:39)
[2017-11-29] MEDS ORDERED: ISOVUE-370 200 ML INFUS..BTL IV ONE (13:06)
[2017-11-29] MEDS ORDERED: *HR* Heparin 10,000 UNIT/10 ML VIAL ONE (13:06)
[2017-11-29] MEDS ORDERED: Nitroglycerin 1,000 MCG/10 ML VIAL IV ONE (13:06)
[2017-11-29] MEDS ORDERED: Heparin 1,000 UNITS/500 mL 500 ML ONE (13:06)
[2017-11-29] MEDS ORDERED: *HR* Midazolam HCl 2 MG/2 ML VIAL ONE ×2 (13:40→14:22)
[2017-11-29] MEDS ORDERED: *HR* FentaNYL (PF) 100 MCG/2 ML VIAL ONE ×2 (13:40→14:23)
[2017-11-29] MEDS ORDERED: Verapamil 5 MG/2 ML VIAL ONE (13:53)
--- NOTE | 2017-11-29 14:01 | Pre-Sedation Evaluation ---
Pre-sedation evaluation - Pre-sedation checklist Date of procedure: 11/29/17 Procedure: C Recent Vitals: Last Vital Signs Temp 98.6 F 11/29/17 11:59 Pulse 84 11/29/17 11:59 Resp 15 11/29/17 11:59 BP 173/92 11/29/17 11:59 Pulse Ox 95 11/29/17 11:59 H&P (including ROS) documented in medical record: Yes Previous reaction to sedatives/anesthetics: No Dietary Status: NPO after Midnight ASA Classification *see protocol: CLASS II-Mild systemic disease Cardiac Registry (Cardio Only) - Functional Capacity Functional Capacity: >=4 METS with symptoms - Clincal Frailty Scale Clinical Frailty Scale: Vulnerable
--- NOTE | 2017-11-29 14:45 | Event Note ---
Date of Encounter: 11/29/17 Time of Encounter: 14:45 - Cardiology Event Note Per discussion Dr. Mittal, catheterization showed no major lesions requiring intervention. Cardiology will sign off, reconsult as needed, follow-up arranged.
--- NOTE | 2017-11-29 15:22 | Invasive Diagnostic Lab Proc ---
Name: Silas Mckay Date of Study: 11/29/2017 Date: 1965 Ht: 68.9in Medical Record#: [id number] Age: 52 Wt: 434.31lb Gender: Male BSA: 2.87 Order #: [id number] BMI: 64.33 Physicians Procedure Physician: Devi Mittal MD Referring MD: Referring MD: Staff Name Position Time In Yessi, Noe RN Physical Sciences Professor 01:38 PM Genesis Hill RN Monitor 01:38 PM Barrington Nickerson RT (R) Scrub 01:38 PM Clarice Garcia RN Nurse 03:00 PM Indications Indication Abnormal Test - Stress Procedures Performed Procedure L HRT ARTERY/VENTRICLE ANGIO Pre-Procedure Checklist Informed consent is complete signed and on chart. H&P is on chart. ID band is on and ID verified with patient. Patient NPO for procedure The procedure was described for the patient and questions were answered. Blood Pressure: 176/95 ECG is on chart. Plan of Care Patient will tolerate the procedure without complications. Adequate level of comfort will be maintained. Hemodynamics will remain stable Patient will recover from procedure without complications. Respiratory function will be maintained. Cardiac rhythm will remain stable. Patient temperature will be maintained. Patient and/or family have verbalized understanding of the procedure. Patient Education Intravenous Access Time IV Size Location DC'd Fluid/Drip Rate Units RN 18g 1 1/4" Patent On Arrival Lt Hand 0.9NaCl [facility] RN Allergies Penicillins Vital Signs Time BP (mmHg) HR (bpm) O2 Sat. RR (bpm) LOC 176 / 95 81 95 % 14 5 = Fully awake and oriented or at pre-proc level 01:45 PM / % 5 = Fully awake and oriented or at pre-proc level 02:00 PM / % 4 = Oriented but drowsy 02:01 PM / % 4 = Oriented but drowsy 02:16 PM / % 4 = Oriented but drowsy 02:31 PM / % 4 = Oriented but drowsy 01:50 PM 161 / 88 77 96 % 01:55 PM 165 / 94 78 95 % 18 02:00 PM 160 / 87 74 95 % 24 02:05 PM 165 / 89 75 94 % 17 02:10 PM 168 / 93 77 94 % 18 02:15 PM 167 / 94 77 94 % 18 02:20 PM 166 / 99 76 94 % 15 02:25 PM 163 / 89 83 93 % 17 02:30 PM 156 / 94 87 92 % 18 02:35 PM 173 / 101 82 93 % 36 02:40 PM 173 / 105 86 94 % 17 02:45 PM 179 / 114 90 94 % 17 Procedural Medications Time Medication Dose Units Method Given By 01:50 PM Oxygen 2 L/min nasal cannula Noe Dickson RN 01:55 PM Versed 1 mg Intravenous Noe Dickson RN 01:55 PM Fentanyl 50 mcg Intravenous Noe Dickson RN 02:13 PM Versed 1 mg Intravenous Noe Dickson RN 02:14 PM Fentanyl 50 mcg Intravenous Noe Dickson RN 02:17 PM Lidocaine 2% 3 ml Subcutaneous Devi Mittal MD 02:22 PM Heparin 4000 units Nitroglycerin 200 mcg Verapamil 2.5 mg Intraarterial Devi Mittal MD 02:22 PM Versed 0.5 mg Intravenous Noe Dickson RN 02:23 PM Fentanyl 25 mcg Intravenous Noe Dickson RN 02:35 PM Versed 0.5 mg Intravenous Noe Dickson RN 02:35 PM Fentanyl 25 mcg Intravenous Noe Dickson RN Trisha Score Preprocedure Postprocedure Activity 2- Moves 4 extremities sustained head lift Activity Circulation 2- SBP +/= 20 points of pre-anesthetic level Circulation Consciousness 2- Awake and alert oriented x 3 Consciousness O2 Saturation 2- Able to maintain O2 satruation of 92% on room air O2 Saturation Respiratory 2- Able to deep breathe and cough well Respiratory Total Score 10 Total Score Contrast Agent: Isovue Diagnostic Contrast: 87 ml Total Contrast: 87 ml Fluoro Dose: 03475 mGy Procedure Log Time Note Enter By 01:38 PM CathStat 01:38 PM Pt arrived to slab polisher 2 at 13:38 tessa 01:38 PM Noe Dickson RN Position: Physical Sciences Professor Time in: 13:38 tessa 01:38 PM [facility] RN Position: Monitor Time in: 13:38 [email or web address] 01:39 PM Barrington Nickerson (R) Position: Scrub Time in: 13:38 tessa 01:39 PM Patient charges- Angio tray pack, Navilyst 3mm J, Pulse Oximetry and ACIST tubing and transducer [email or web address] 01:39 PM Physican paged/called 13:39. [facility] :45 PM Time: 13:45 Patient comfortable and pain free: Yes [facility] Time: 13:45LOC: 5 = Fully awake and oriented or at pre-proc level [facility] :49 PM Vitals capture started with the following parameters, Patient=Adult, Interval=5 min, Initial Hdmfucoo=186 mmHg, Deflation Rate=5 mmHg, Cuff placed on Right Arm 01:49 PM Physician arrived 13:49 [facility] PM Meet and greet completed [facility] :50 PM Sign in performed according to hospital policy. [facility] 01:50 PM Procedure start 13:50 [facility] :50 PM Time: 13:50 Oxygen on at 2 L/min per nasal cannula by Noe Dickson RN [facility] :50 PM Case Delayed no, inpatient [facility] 01:50 PM HR=77 bpm, MHSJ=992/88 mmhg, SpO2=96.0 %, Comment=nsr 01:55 PM HR=78 bpm, CJWU=824/94 mmhg, SpO2=95.0 %, Resp=18 B/min, Comment=nsr 01:59 PM Time: 13:55 Versed 1 mg Intravenous Given by Noe Dickson RN capo 01:59 PM Time: 13:55 Fentanyl 50 mcg Intravenous Given by Noe Dickson RN [facility] 02:00 PM HR=74 bpm, VIEU=589/87 mmhg, SpO2=95.0 %, Resp=24 B/min, Comment=nsr 02:00 PM Time: 14:00 Patient comfortable and pain free: Yes [facility] 02:01 PM Time: 14:00LOC: 4 = Oriented but drowsy [facility] 02:01 PM Hair removed from procedure site in procedure lab using clippers. Right wrist prepped with Chloraprep by Genesis Hill RN, then patient was draped. Skin intact. [facility] 02:01 PM Clinical Presentation: Unstable angina [facility] 02:05 PM HR=75 bpm, QCCG=028/89 mmhg, SpO2=94.0 %, Resp=17 B/min, Comment=nsr 02:10 PM HR=77 bpm, HRXK=202/93 mmhg, SpO2=94.0 %, Resp=18 B/min, Comment=nsr 02:13 PM Time out performed according to hospital policy [facility] 02:14 PM Time: 14:13 Versed 1 mg Intravenous Given by Noe Dickson RN [facility] 02:14 PM Time: 14:14 Fentanyl 50 mcg Intravenous Given by Noe Dickson RN [facility] 02:15 PM HR=77 bpm, QZSI=941/94 mmhg, SpO2=94.0 %, Resp=18 B/min, Comment=nsr 02:16 PM Time: 14:01LOC: 4 = Oriented but drowsy [facility] 02:16 PM Time: 14:01 Patient comfortable and pain free: Yes [facility] 02:17 PM Time: 14:17 3 ml Lidocaine 2% to right radial Subcutaneous Given by Devi Mittal MD sco[facility] 02:20 PM HR=76 bpm, LRSZ=196/99 mmhg, SpO2=94.0 %, Resp=15 B/min, Comment=nsr 02:22 PM Access obtained by percutaneous puncture. 6Fr 11cm Terumo Glidesheath sheath placed in right Radial artery. [id number] sco[facility] 02:22 PM Time: 14:22 Patient given 4,000 units Heparin, 200 mcg Nitroglycerin, and 2.5 mg Verapamil Intraarterial by Devi Mittal MD. This is given to reduce risk of vessel spasm and thrombosis. [facility] 02:22 PM Time: 14:22 Versed 0.5 mg Intravenous Given by Noe Dickson RN [facility] 02:23 PM Time: 14:23 Fentanyl 25 mcg Intravenous Given by Noe Dickson RN [facility] 02:23 PM Pressure channel 1 zeroed. 02:25 PM 5Fr FR 4 catheter inserted over the wire [facility] scoates 02:25 PM HR=83 bpm, MCJS=054/89 mmhg, SpO2=93.0 %, Resp=17 B/min, Comment=nsr 02:27 PM Recorded Pressure: Ao, HR=86, Condition=Condition 1 (Aorta) Ao 103/74/88 02:27 PM RCA angiography performed in multiple views. scoates 02:28 PM Catheter removed scoates 02:28 PM 5Fr FL3.5 catheter inserted over the wire [id number] scoates 02:30 PM HR=87 bpm, WJAG=192/94 mmhg, SpO2=92.0 %, Resp=18 B/min, Comment=nsr 02:30 PM Clarice Garcia RN Position: Nurse Time in: 14:30 scoates 02:31 PM Time: 14:16 Patient comfortable and pain free: Yes [facility] 02:31 PM Time: 14:16LOC: 4 = Oriented but drowsy [facility] 02:35 PM HR=82 bpm, MGKZ=837/101 mmhg, SpO2=93.0 %, Resp=36 B/min, Comment=nsr 02:35 PM Time: 14:35 Versed 0.5 mg Intravenous Given by Noe Dickson RN sco[place] 02:35 PM Time: 14:35 Fentanyl 25 mcg Intravenous Given by Noe Dickson RN scoates 02:36 PM Catheter removed scoates 02:36 PM 6Fr CLS 3.0 Runway guide catheter was used to cannulate the PCI vessel successfully. reused? No scoates 02:36 PM LCA angiography performed in multiple views. scoates 02:37 PM Recorded Pressure: Ao, HR=82, Condition=Condition 1 (Aorta) Ao 147/84/112 02:38 PM Recorded Pressure: Ao, HR=83, Condition=Condition 1 (Aorta) Ao 153/49/102 02:39 PM Recorded Pressure: Ao, HR=84, Condition=Condition 1 (Aorta) Ao 142/84/110 02:40 PM HR=86 bpm, SOUM=759/105 mmhg, SpO2=94 %, Resp=17 B/min 02:43 PM Guide catheter removed intact. scoates 02:45 PM HR=90 bpm, USZK=313/114 mmhg, SpO2=94 %, Resp=17 B/min 02:46 PM Procedure completed at 14:46 11/29/2017 scoates 02:46 PM Did you address TEZ flow and Dominance? Yes scoates 02:46 PM Time: 14:31LOC: 4 = Oriented but drowsy sco[place] 02:46 PM Time: 14:31 Patient comfortable and pain free: Yes sco[place] 02:46 PM Coronary Dominance: right scoates 02:47 PM Sign out completed: Radiation Dose 1155 mGy, 94806 cGy/cm2 Fluoro Time: 5.7 Isovue 370 - 200ml contrast 87 ml given by Devi Mittal MD. Complications: NoneCardiac Rehab Consult needed: NoConfirmed administered medications: Yes scoates 02:47 PM Isovue 370 - 200ml,1 Bottle(s) used. scoates 02:47 PM Arterial sheath pulled, Vasc Band closure device used and was Successful S/N. scoates 02:47 PM 24 ml air in Vasc Band. scoates 02:47 PM Estimated Blood Loss: minimal scoates 02:47 PM Post ECG NSR scoates 02:47 PM Post Blood Pressure 156/94 scoates 02:48 PM 14:47 Post Pulses Rt Radial 1+ scoates 02:48 PM Information taught Cardiac Cath and Vasc Band scoates 02:48 PM Education needs Procedure, Plan of Care, and Responsibilities of Patient in Care scoates 02:48 PM Learning barriers :None scoates 02:48 PM Education Methods Verbal scoates 02:48 PM Education evaluation Able to repeat information scoates 02:48 PM Site status No bleeding/hematoma - Rt Wrist as reported by Barrington Nickerson RT (R) at 14:48 scoates 02:49 PM Plavix, Effient or Brilinta given No scoates 02:49 PM Delay to floor No scoates 02:49 PM Patient out of room: 14:49 scoates 02:50 PM Family placed in consult room. [facility] 02:51 PM Report given to 3b nurse RN Pt taken to 3B Room #13. 14:50 scoates 02:56 PM Patient out of room: 14:56 scoates 03:12 PM Lesion found in Mid LAD. Pre Stenosis: 20 Pre TEZ Flow: scoates Complications Complication None Hemodynamics Pressures Site Systolic/A Wave Diastolic/V Wave Mean AO 103 74 88 AO 147 84 112 AO 153 49 102 AO 142 84 110 Post Procedure Information Blood Pressure: 156/94 mmHg Rhythm: NSR Post procedural instructions were given Site Checks Time Location Status Staff Sheath In? Note 02:48 PM Rt Wrist No bleeding/hematoma Barrington Nickerson RT (R) Pulses Time Site Pre-Procedure Post-Procedure Note Bilateral DP & PT 1+ Bilateral radial 2+ 2:47:00 PM Rt Radial 1+ Updated by Noe Dickson RN on 11/29/2017 3:13:04 PM electronically signed on 11/29/2017 3:14:01 PM with status of Final
--- NOTE | 2017-11-29 16:09 | Discharge Summary ---
- NOTES TO OUTPATIENT PROVIDER Notes to Outpatient Provider: Admitted for chest pain rule out; had an abnormal nuclear stress showing reversible perfusion defect of [id number] intensity. He underwent left heart cath; no major lesions requiring stenting were found. Orders not resulted at time of discharge: Pending orders 11/27/17 06:00 NM gracia perf SPECT multi [NM] Routine 11/29/17 10:29 CL Cardiac Catheterization [CL] Routine Date of Encounter: 11/29/17 Time of Encounter: 16:06 - Discharge Diagnosis (1) Chest pain Priority: Primary Status: Acute Assessment and Plan: Presented for ACS rule out with an out of 10 chest pain Significant risk factors including hypertension, diabetes, obesity and CHF Nuclear stress revealing perfusion defect Underwent left heart catheter; no significant coronary artery disease found No return of chest pain throughout stay Given negative workup is being discharged home No changes made to medications Continue with weight loss and lifestyle modifications as well as dietary changes Qualifiers: Chest pain type: unspecified Qualified Code(s): R07.9 - Chest pain, unspecified (2) CHF (congestive heart failure) Priority: Secondary Status: Chronic Qualifiers: Heart failure type: unspecified Heart failure chronicity: unspecified Qualified Code(s): I50.9 - Heart failure, unspecified (3) Hypertension Priority: Secondary Status: Chronic Qualifiers: Hypertension type: essential hypertension Qualified Code(s): I10 - Essential (primary) hypertension (4) Diabetes mellitus Priority: Secondary Status: Chronic Qualifiers: Diabetes mellitus type: type 2 Diabetes mellitus terminologist insulin use: without care home use Diabetes mellitus complication status: with hyperglycemia Qualified Code(s): E11.65 - Type 2 diabetes mellitus with hyperglycemia (5) Morbid obesity Priority: Secondary Status: Acute (6) DVT prophylaxis Priority: Secondary Status: Acute (7) Chronic respiratory failure Priority: Secondary Status: Acute Assessment and Plan: Patient reports chronic oxygen use at home. Recently changed insurance companies and was unable to pay for oxygen prescription and has since left the labs Use qualified for the need for O2 upon discharge subsequently will be sent with a prescription for oxygen Qualifiers: Respiratory failure complication: unspecified whether with hypoxia or hypercapnia Qualified Code(s): J96.10 - Chronic respiratory failure, unspecified whether with hypoxia or hypercapnia Hospital course: Mr. Mckay is a 52 year old male who was admitted with chest pain R/O ACS. Underwent stress test which showed reversible perfusion defect. LHC completed; no lesions found requiring stenting. Chest pain has subsided. No medication changes made Discharge discussed with: patient, family, nurse - Time Spent with Patient Total time spent providing and/or coordinating discharge services: Less than 30 minutes - Discharge Medications Home Medications: Aspirin Enteric Coated [Aspirin EC] 81 mg PO DAILY 11/26/17 [History] BuPROPion XL (24 HR) [Wellbutrin Xl] 150 mg PO DAILY 11/26/17 [History] Carvedilol 12.5 mg PO BID 11/26/17 [History] DULoxetine [Cymbalta] 30 mg PO DAILY 11/26/17 [History] Ergocalciferol (VITAMIN D2) [Vitamin D2] 50,000 unit PO QWEEK 11/26/17 [History] Furosemide [Lasix] 40 mg PO DAILY 11/26/17 [History] Lisinopril [Zestril] 40 mg PO DAILY 11/26/17 [History] Metformin HCl [Metformin HCl ER] 500 mg PO DAILY 11/26/17 [History] Nitroglycerin [Nitrostat] 0.4 mg SL Q5MIN PRN 11/26/17 [History] Nortriptyline [Pamelor] 25 mg PO HS 11/26/17 [History] Omeprazole [PriLOSEC] 40 mg PO DAILY 11/26/17 [History] Pregabalin [Lyrica] 150 mg PO BID 11/26/17 [History] Sulfasalazine [Azulfidine] 500 mg PO BID 11/26/17 [History] Tamsulosin HCl [Flomax] 0.4 mg PO DAILY 11/26/17 [History] Tizanidine HCl 4 mg PO BID 11/26/17 [History] amLODIPine [Norvasc] 5 mg PO DAILY 11/26/17 [History] Allergies/Adverse Reactions: 3 Allergy/AdvReac Type Severity Reaction Status Date / Time Penicillins [PCN] Allergy Anaphylaxis Verified 11/26/17 17:15 Date of admission: 11/26/17 18:50 Primary care physician: Regina Forte MD Consults: 11/27/17 09:56 Consult to Nurse Navigator [CONS] Routine Comment: CHF 11/28/17 16:16 Consult to Diabetes Education [CONS] Routine Comment: Reason for Consult: morbid obesity uncontrolled diabetes Consult to Nutrition [CONS] Routine Comment: Consulting Provider: NUTRITION Reason for Dietary Consult: Diet Education 11/28/17 17:38 Consult to Cardiology [CONS] Stat Comment: Consulting Provider: [facility] [place] Reason for Consult: abnormal stress test with ischemia small to moderate SDSs =3 LVef Time Notified: 17:42 Call Completed: Yes Discharging clinician: Dharmesh Read Anticipated date of discharge: 11/29/17 - Constitutional Vitals: Temp Pulse Resp BP Pulse Ox 98.6 F 75 16 153/55 93 11/29/17 15:00 11/29/17 15:45 11/29/17 15:45 11/29/17 15:45 11/29/17 15:45 General appearance: Present: A&O X 3, morbidly obese Exam: . - Head Head exam: Present: atraumatic, normocephalic - Eye Eye exam: Present: PERRL, conjuntiva pink, sclera anicteric Pupils: Present: PERRL - Neck Neck exam general surgery: Present: supple, trachea midline. Absent: lymphadenopathy - Respiratory Respiratory exam: Present: CTAB. Absent: accessory muscle use, rales, rhonchi, wheezes - Cardiovascular Cardiovascular exam: Present: RRR, +S1, +S2. Absent: diastolic murmur, gallop, rubs, systolic murmur - GI/Abdominal GI/Abdominal exam: Present: normal bowel sounds, soft, no peritoneal signs. Absent: distended, tenderness - Extremities Exam Extremities exam: Present: warm, radial pulses palpable and symmetrical. Absent : calf tenderness, cyanotic, pedal edema - Neurological Exam Neurological exam: Present: CN II-XII intact, oriented X3, no focal deficits. Absent: pronater drift, facial droop, speech deficit - Skin Skin exam: Present: dry, intact - Patient Status Disposition: Home, Self-Care Condition: Good Functional capacity at discharge: independent ambulation Overall status at discharge: patient is progressing back to baseline - Discharge Instructions Instructions: Chest Pain (DC), Diabetes Mellitus Type 2 in Adults (DC), Heart Failure (DC), Chronic Hypertension (DC) Follow Up With: Regina Forte MD [Primary Care Provider] - 12/06/17 11:00 am - Diet and Activity Activity: increase activity as tolerated, resume usual activities as tolerated Diet: diabetic diet, low fat, low cholesterol, low salt diet
[2017-11-29 17:59] VITALS: BP 145/75
== END 2017-11-29 19:12 | disposition home or self-care (01) ==
LOC: EMEROOARM 13:52 → 3BNU 13:52
PROVIDERS: ADMIT Internal Medicine; ATTEND Internal Medicine